=== PATIENT | male | born 1985 | race Caucasian/White ===

== ENCOUNTER 2017-03-11 19:34 | Emergency (ER) | payer SELFPAY ==
[~2017-03-11] VITALS: Ht 175.3 cm; Wt 63.9 kg
[2017-03-11] MEDS ORDERED: DILTIAZEM 5 MG/ML, 5ML IVPush STA (20:06)
[2017-03-11] MEDS ORDERED: DILTIAZEM 5 MG/ML, 5ML ONE (20:07)
[2017-03-11] MEDS ORDERED: PROPOFOL 10 MG/ML, 20ML IVPush ONE (20:30)
[2017-03-11] MEDS ORDERED: SODIUM CHLORIDE FLUSH 10ML SYR IVF ONE (20:30)
[2017-03-11 20:45] LABS: BLOOD UREA NITROGEN 9 mg/dL (7-18)
[2017-03-11] MEDS ORDERED: PROPOFOL 10 MG/ML, 20ML ONE (20:47)
[2017-03-11 23:00] VITALS: BP 120/81
== END 2017-03-11 23:01 ==
LOC: ED 22:30
DX: I48.91 Unspecified atrial fibrillation (principal); F12.10 Cannabis abuse, uncomplicated
CPT/HCPCS: 36415; 80048; 82040; 85025; 92960; 93005; 96374; 99152; 99153; 99285; J2704